=== PATIENT | male | born 1980 | race Caucasian/White ===

== ENCOUNTER 2023-01-13 09:56 | Day surgery (SDC) | payer BC ==
[~2023-01-13] VITALS: Ht 175.3 cm; Wt 174.0 kg
[2023-01-13] MEDS ORDERED: MOBIC15 MG PO (10:59)
[2023-01-13] MEDS ORDERED: NEURONTIN800 MG/TAB PO (11:00)
[2023-01-13] MEDS ORDERED: ULTRAM 50MG TAB50 MG PO (11:00)
[2023-01-13] MEDS ORDERED: LASIX 20MG TABL20 MG PO (11:00)
[2023-01-13] MEDS ORDERED: FLEXERIL 1010 MG/TAB PO (11:01)
[2023-01-13 14:05] VITALS: BP 178/73; PULSE 100; TEMP 98.6
[2023-01-13] MEDS ORDERED: MOTRIN 600600 MG/TAB PO (15:03)
[2023-01-13] MEDS ORDERED: NORCO 325 MG-51 TAB PO (15:03)
[2023-01-13 15:20] VITALS: BP 114/79; PULSE 95; TEMP 97.6
[2023-01-13 15:35] VITALS: BP 146/93; PULSE 92
[2023-01-13 15:50] VITALS: BP 131/76; PULSE 93
--- NOTE | 2023-01-13 17:14 | NUR ---
1520: PATIENT TO BAY 2 PER CART FROM PACU. REPORT RECEIVED FROM PACU NURSE. VS STABLE. BREATHING EVEN AND UNLABORED. DRESSING TO SACRAL AREA C/D/I. PATIENT STATED PAIN IS MANAGABLE AND DOES NOT WANT ANY PAIN MEDICATION AT THIS TIME. PATIENT GIVEN ICE WATER AND PUDDING AT THIS TIME. PADMINI AT BEDSIDE. RESTING IN COT. CALL LIGHT IN REACH. 1535: PATIENT TOLERTING FOOD AND DRINK. NO C/O NAUSEA. PAIN REMAINS TOLERABLE. VS REMAIN STABLE. 1550: VS REMAIN STABLE. PATIENT TOLERATING PAIN AND DENIES ANY NEED FOR PAIN MEDICATION. PADMINI REMAINS AT BEDSIDE. CALL LIGHT IN REACH. 1610: IV DC'D AT THIS TIME. PATIENT DRESSED WITH OUT ASSISTANCE. PATIENT AMBULATED TO BATHROOM WITH STEADY GAIT. 1615: DISCHARGE EDUCATION COMPLETED. PATIENT STATED UNDERSTANDING OF HOME AND FOLLOW UP CARE. DISCHARGE PAPERWORK GIVEN TO PATIENT. 1620: PATIENT OFF UNIT VIA WHEELCHAIR. PATIENT DISCHARGED TO HOME WITH FAMILY PER PERSONAL VEHICLE.
[2023-01-13 19:36] VITALS: BP 114/79; PULSE 95; TEMP 97.6
== END 2023-01-13 16:15 | disposition home or self-care (01) ==
LOC: SDCO 09:56
DX: L05.91 Pilonidal cyst without abscess (principal); D22.5 Melanocytic nevi of trunk; E66.9 Obesity, unspecified; Z68.43 Body mass index [BMI] 50.0-59.9, adult
CPT/HCPCS: J0330; J0690; J1100; J1885; J2405; J2704; J3010; J7120

== ENCOUNTER 2023-01-31 23:09 | Emergency (ER) | payer BC ==
[~2023-01-31] VITALS: Ht 175.3 cm; Wt 163.6 kg
[~2023-01-31 23:09] MED LIST: FLEXERIL 1010 MG/TAB PO; LASIX 20MG TABL20 MG PO; MOBIC15 MG PO; MOTRIN 600600 MG/TAB PO; NEURONTIN800 MG/TAB PO; NORCO 325 MG-51 TAB PO; ULTRAM 50MG TAB50 MG PO
[2023-01-31 23:13] VITALS: BP 164/84; TEMP 98
[2023-01-31 23:46] VITALS: PULSE 90
== END 2023-01-31 23:50 | disposition home or self-care (01) ==
LOC: COL.ER 23:09
DX: L76.22 Postprocedural hemorrhage of skin and subcutaneous tissue following other procedure (principal)

== ENCOUNTER → 2023-08-11 | Outpatient (CLI) | payer BC | LOC: COL.RAD 08:30 | DX: R20.2 Paresthesia of skin (principal); R29.898 Other symptoms and signs involving the musculoskeletal system; M54.50 Low back pain, unspecified; G89.29 Other chronic pain | CPT/HCPCS: A9575 ==

== ENCOUNTER 2024-04-19 06:28 | Emergency (ER) | payer BC ==
[~2024-04-19] VITALS: Ht 175.3 cm; Wt 161.4 kg
[2024-04-19 06:40] VITALS: TEMP 98.8
[2024-04-19 07:05] LABS: URINE APPEARANCE CLEAR (CLEAR/HAZY); URINE BLOOD NEGATIVE (NEGATIVE); URINE COLOR YELLOW (YELLOW); URINE GLUCOSE NEGATIVE (NEGATIVE); URINE KETONE NEGATIVE (NEGATIVE); URINE NITRATE NEGATIVE (NEGATIVE); URINE PROTEIN(semi-quant) NEGATIVE (NEGATIVE); URINE UROBILINOGEN 0.2 E.U/dL (0.2-1.0)
[2024-04-19] MEDS ORDERED: LEVAQUIN 5500 MG/TA1 PO (07:28)
[2024-04-19] MEDS ORDERED: levoFLOXacin 500 MG TAB PO ONE (07:30)
[2024-04-19 07:49] LABS: COLLECTION METHOD CLEAN CATCH
[2024-04-19 07:50] VITALS: BP 137/62; PULSE 100
== END 2024-04-19 07:50 | disposition home or self-care (01) ==
LOC: COL.ER 06:28
PROVIDERS: Emergency Medicine
DX: N50.811 Right testicular pain (principal); Z88.0 Allergy status to penicillin

== ENCOUNTER → 2024-04-20 | Outpatient (CLI) | payer BC ==
[~2024-04-20] MED LIST changes: +LEVAQUIN 5500 MG/TA1 PO
== END ==
LOC: COL.RAD 07:43
DX: N50.811 Right testicular pain (principal)